=== PATIENT | female | born 1985 | race Caucasian/White ===

== ENCOUNTER 2017-10-16 11:54 | Emergency (ER) | payer MEDICAID, OTHER ==
[2017-10-16 11:54] VITALS: BMI 25.8
--- NOTE | 2017-10-16 12:23 | ED PDOC ---
HPI: Abdomen Time Seen by Provider: 10/16/17 12:00 Chief Complaint (Nursing): Abdominal Pain Chief Complaint (Provider): Fever and abdominal pain History Per: Patient Additional Complaint(s): 32 yo female, no PMH, presents to ED currently 2 months , . Sent from [facility] for evaluation of LLQ pain and lower back pain x 2 days. Fever yesterday. Pt admits to mild nasal congestion, no cough, no nausea, vomiting or diarrhea, no UTI like complaints. Past Medical History Reviewed: Nursing Documentation, Vital Signs Vital Signs: Last Vital Signs Temp 99 F 10/16/17 12:08 Pulse 96 H 10/16/17 12:08 Resp 16 10/16/17 12:08 BP 100/59 L 10/16/17 12:08 Pulse Ox 99 10/16/17 15:21 - Medical History PMH: Asthma - Surgical History Surgical History: No Surg Hx - Family History Family History: States: Unknown Family Hx - Living Arrangements Living Arrangements: With Family - Social History Current smoker - smoking cessation education provided: No Alcohol: None Drugs: Denies - Immunization History Hx Tetanus Toxoid Vaccination: No Hx Influenza Vaccination: No Hx Pneumococcal Vaccination: No - Allergies Allergies/Adverse Reactions: Allergies Allergy/AdvReac Type Severity Reaction Status Date / Time No Known Allergies Allergy Verified 12/25/15 11:17 Review of Systems ROS Statement: Except As Marked, All Systems Reviewed And Found Negative Constitutional: Positive for: Fever Gastrointestinal: Positive for: Abdominal Pain Physical Exam - Reviewed Nursing Documentation Reviewed: Yes Vital Signs Reviewed: Yes - Physical Exam Appears: Positive for: Well, Non-toxic, No Acute Distress Head Exam: Positive for: ATRAUMATIC, NORMAL INSPECTION, NORMOCEPHALIC Skin: Positive for: Normal Color, Warm, DRY Eye Exam: Positive for: EOMI, Normal appearance, PERRL ENT: Positive for: Normal ENT Inspection Neck: Positive for: Normal, Painless ROM Cardiovascular/Chest: Positive for: Regular Rate, Rhythm Respiratory: Positive for: CNT, Normal Breath Sounds Gastrointestinal/Abdominal: Positive for: Soft, Tenderness (llq ) Back: Positive for: Normal Inspection. Negative for: L CVA Tenderness, R CVA Tenderness Extremity: Positive for: Normal ROM Neurologic/Psych: Positive for: Alert, Oriented - Laboratory Results Result Diagrams: 10/16/17 12:40 10/16/17 12:40 - ECG O2 Sat by Pulse Oximetry: 99 Medical Decision Making Medical Decision Making: Pt declined Tylenol upon arrival Temp 99 WBC 6.6 Beta [id number] IMPRESSION: Single intrauterine gestation with normal cardiac activity whose menstrual age by this ultrasound exam's biometric parameters is 12 weeks 1 day 0 weeks 6 days with an estimated date of delivery of 04/29/2018. The offered clinical gestational age is 12 weeks 5 days with an estimated date of delivery 04/25/2018. The actual LMP date is not so stated. UA: large leuks, 19 WBC IV Rocephin started for UTI noted on UA Pt advised observation advised; however, Pt refusing. Pt reports she would rather go home and she will follow up with her OB, she has an appointment on already Pt willing to sign out AMA Disposition - Clinical Impression Clinical Impression: Pyelonephritis affecting - Patient ED Disposition Is Patient to be Admitted: Yes - Disposition Disposition: Against Medical Advice Disposition Time: 15:54 Condition: STABLE Forms: [employer] (Citizen Of [place])
[2017-10-16 13:21] LABS: SQUAMOUS EPITHIAL 17 /hpf (0-5); URINE BACTERIA MANY (<OCC); URINE BILIRUBIN NEGATIVE (NEGATIVE); URINE BLOOD NEGATIVE (NEGATIVE); URINE CLARITY CLOUDY (Clear); URINE COLOR AMBER (YELLOW); URINE GLUCOSE (UA) NEG (Normal); URINE LEUKOCYTE ESTERASE LARGE Leu/uL (Negative); URINE PROTEIN 30 mg/dL (NEGATIVE); URINE UROBILINOGEN 0.2-1.0 mg/dL (0.2-1.0)
--- NOTE | 2017-10-16 13:23 | US ---
Date of service: 10/16/2017 HISTORY: LLQ pain LMP not specified. Clinically, however patient believe to be approximately 12 weeks 5 days. COMPARISON: None available. TECHNIQUE: Transvaginal FINDINGS: Single intrauterine gestation with cardiac activity at 154 beats per minute. Gestational sac 5.8 cm corresponding to 11 weeks 6 days. Yolk sac 0.49 cm pole rump length 5.87 cm corresponding 12 weeks 3 days. UTERUS: Measures 11.2 x 10.4 x 8.4 cm. Normal in size and appearance. No fibroid or other mass lesion seen. CERVIX: No cervical abnormality identified. 4.73 cm in length RIGHT OVARY: Measures 3.2 x 3.6 x 2.6 cm. Complex appearing cyst 2.0 x 1.7 x 1.4 cm - normal flow LEFT OVARY: Measures 0.8 x 2.0 x 1.6 cm. No solid mass. Normal flow. FREE FLUID: No significant free fluid noted. OTHER FINDINGS: None. IMPRESSION: Single intrauterine gestation with normal cardiac activity whose menstrual age by this ultrasound exam's biometric parameters is 12 weeks 1 day 0 weeks 6 days with an estimated date of delivery of 04/29/2018. The offered clinical gestational age is 12 weeks 5 days with an estimated date of delivery 04/25/2018. The actual LMP date is not so stated.
[2017-10-16 13:35] LABS: BASO % 0.8 % (0.0-2.0); EOS # 0.3 K/uL (0.0-0.7); EOS % 4.2 % (0.0-4.0); HEMOGLOBIN 11.8 g/dL (12.0-16.0); LYMPH # 1.8 K/uL (1.0-4.3); MEAN CELL VOLUME 75.3 fl (81.0-99.0); MEAN CORPUSCULAR HEMOGLOBIN 24.9 pg (27.0-31.0); MEAN CORPUSCULAR HGB CONC 33.1 g/dL (33.0-37.0); MEAN PLATELET VOLUME 8.3 fl (7.2-11.7); MONO # 0.7 K/uL (0.0-0.8); NEUT # 3.8 K/uL (1.8-7.0); RBC 4.73 Mil/uL (3.80-5.20); RED CELL DISTRIBUTION WIDTH 16.2 % (11.5-14.5); WHITE BLOOD COUNT 6.6 K/uL (4.8-10.8)
[2017-10-16 13:54] LABS: ALB/GLOB RATIO 1.3 (1.0-2.1); ALBUMIN 3.9 g/dL (3.5-5.0); ALT/SGPT 33 U/L (9-52); AST/SGOT 23 U/L (14-36); BLOOD UREA NITROGEN 6 mg/dl (7-17); CALCIUM 9.1 mg/dL (8.4-10.2); GFR AFRICAN-AMERICAN > 60; GFR NON-AFRICAN AMERICAN > 60
[2017-10-16] MEDS ORDERED: cefTRIAXone (Rocephin) 1 gm Inj ONE (15:24)
[2017-10-16 16:58] VITALS: BP 104/76; PULSE 70; RESP 18; TEMP 98.4; O2SAT 100
== END 2017-10-16 17:04 | disposition left against medical advice (07) ==
LOC: H.ER 11:54
DX: O23.01 Infections of kidney in pregnancy, first trimester (principal)
CPT/HCPCS: 76817; 80053; 81003; 81025; 84702; 85025; 87040; 87086; 96365; 99284; J0696